=== PATIENT | female | born 1975 | race Caucasian/White ===

== ENCOUNTER 2016-12-13 10:17 | Emergency (ER) | payer OTHER ==
[2016-12-13] MEDS ORDERED: OXYCODONE/APAP 5/325 TAB ONE (14:21)
== END 2016-12-13 14:45 | disposition home or self-care (01) ==
LOC: ER 10:17
DX: J20.9 Acute bronchitis, unspecified (principal); R60.0 Localized edema; I87.2 Venous insufficiency (chronic) (peripheral); E88.09 Other disorders of plasma-protein metabolism, not elsewhere classified; N30.00 Acute cystitis without hematuria; Z79.899 Other long term (current) drug therapy; F32.9 Major depressive disorder, single episode, unspecified; M79.7 Fibromyalgia; F17.210 Nicotine dependence, cigarettes, uncomplicated
CPT/HCPCS: 36415; 71020; 80053; 81001; 82553; 83880; 84439; 84443; 84484; 85025; 85610; 85730; 87804; 93005